=== PATIENT | male | born 1995 | race Caucasian/White ===

== ENCOUNTER 2018-09-22 20:46 | Emergency (ER) | payer SELFPAY ==
[~2018-09-22] VITALS: Wt 95.0 kg
[2018-09-22] MEDS ORDERED: ONDANSETRON 4 MG INJ IV STA (20:59)
[2018-09-22] MEDS ORDERED: FAMOTIDINE 20 MG INJ IV ONE (21:00)
[2018-09-22 22:21] VITALS: BP 120/86; PULSE 75; RESP 18
[2018-09-23] MEDS ORDERED: NALO4SPR NS (06:59)
[2018-09-23] MEDS ORDERED: CEPH-443 PO (07:58)
[2018-09-23] MEDS ORDERED: SULF1TAB31 PO (07:58)
--- NOTE | 2018-09-29 14:48 | ERD ---
ER Documentation Chief Complaint Chief Complaint abdullahi nunez from home for accidental heroin overdose, given 4 of narcan en route HPI This is a 23-year-old male that was brought into the emergency department by EMS after he was found in his home with a suspected accidental heroin overdose. His friend indicated that he had been utilizing heroin. They found the patient unresponsive. EMS arrived and they administered 4 mg of Narcan as he had agonal respirations and pinpoint pupils. Afterwards he returned to his baseline mental status. He denied any suicidal homicidal thoughts or ideations. He denied any chest pain. He denied a headache. He did not feel nauseous and denied any shortness of breath at rest or exertion. He denied any other illicit drug use ROS All systems reviewed and are negative except as per history of present illness. Medications Home Meds Active Scripts Cephalexin* (Keflex*) 500 Mg Capsule, 500 MG PO QID for 7 Days, CAP Prov:TIFFANY SUAREZ MD 09/23/18 Sulfamethoxazole/Trimethoprim* (Bactrim Ds* Tablet) 1 Each Tablet, 1 TAB PO BID, #14 TAB Prov:TIFFANY SUAREZ MD 09/23/18 Naloxone HCl nasal spray (Narcan 4 mg/0.1 mL nasal) 4 Mg [place], 4 MG NS .Q2-3MIN for OPIOID OVERDOSE, #2 SPRAY 0 Refills [place] 0.1 mL into one nostril. Repeat with second device into other nostril after 2-3 minutes if no or minimal response Prov:TIFFANY SUAREZ MD 09/23/18 Allergies Allergies: Coded Allergies: No Known Allergy (Unverified , 09/23/18) PMhx/Soc Medical and Surgical Hx: pt denies Medical Hx, pt denies Surgical Hx Hx Alcohol Use: Yes Hx Substance Use: Yes (HEROIN) Hx Tobacco Use: No Smoking Status: Never smoker Physical Exam Physical Exam Constitutional:Well-developed. Well-nourished. Disheveled. HEENT:Normocephalic. Atraumatic.Pupils were equal round reactive to light. Moist mucous membranes.No tonsillar exudates. Neck: No nuchal rigidity. No lymphadenopathy. No posterior cervical spine tenderness or step-offs. Respiratory: Not using accessory muscles of respiration.Lungs were clear to auscultation bilaterally. No rhonchi. No rales. No wheezing. Cardiovascular: Regular rate regular rhythm.No murmurs. No rubs were appreciated.S1, S2 normal. Distal pulses are palpable 2+ bilaterally. GI: Abdomen was soft. Nontender. Non Distended. No pulsatile abdominal masses or bruits. No rebound. No guarding. Bowel sounds were present and normal. Muscle skeletal: Full range of motion of both the upper and lower extremities bilaterally.Normal muscle tone.No assymetrical calf tenderness or swelling. Skin: No petechia, no purpura. No lesions on the palms or the soles of the feet. No maculopapular rash. NEURO: Patient was alert, awake, orientated x3.No facial droop. Gait observed and normal with no ataxia.Speech had regular rate and rhythm. No focal neurological deficits. Results 24 hrs Laboratory Tests Test 09/22/18 21:17 White Blood Count 9.8 10^3/ul Red Blood Count 4.68 10^6/ul Hemoglobin 14.9 g/dl Hematocrit 44.2 % Mean Corpuscular Volume 94.4 fl Mean Corpuscular Hemoglobin 31.8 pg Mean Corpuscular Hemoglobin Concent 33.7 g/dl Red Cell Distribution Width 12.8 % Platelet Count 262 10^3/UL Mean Platelet Volume 9.1 fl Immature Granulocytes % 1.200 % Neutrophils % 64.8 % Lymphocytes % 25.7 % Monocytes % 6.7 % Eosinophils % 1.0 % Basophils % 0.6 % Nucleated Red Blood Cells % 0.0 /100WBC Immature Granulocytes # 0.120 10^3/ul Neutrophils # 6.4 10^3/ul Lymphocytes # 2.5 10^3/ul Monocytes # 0.7 10^3/ul Eosinophils # 0.1 10^3/ul Basophils # 0.1 10^3/ul Nucleated Red Blood Cells # 0.0 10^3/ul Prothrombin Time 12.6 Sec Prothrombin Time Ratio 1.0 INR International Normalized Ratio 0.93 Activated Partial Thromboplast Time 25.4 Sec Sodium Level 141 mmol/L Potassium Level 4.5 mmol/L Chloride Level 108 mmol/L Carbon Dioxide Level 26 mmol/L Anion Gap 7 Blood Urea Nitrogen 12 mg/dl Creatinine 0.84 mg/dl Est Glomerular Filtrat Rate mL/min > 60 mL/min Glucose Level 134 mg/dl Calcium Level 8.4 mg/dl Total Bilirubin 0.5 mg/dl Direct Bilirubin 0.00 mg/dl Indirect Bilirubin 0.5 mg/dl Aspartate Amino Transf (AST/SGOT) 109 IU/L Alanine Aminotransferase (ALT/SGPT) 182 IU/L Alkaline Phosphatase 69 IU/L Total Protein 7.3 g/dl Albumin 3.9 g/dl Globulin 3.40 g/dl Albumin/Globulin Ratio 1.14 Salicylates Level < 1.0 mg/dl Acetaminophen Level < 10.0 ug/ml Ethyl Alcohol Level < 10.0 mg/dl Current Medications Medications Dose Sig/Jerrica Start Time Status Last (Trade) Ordered Route PRN Stop Time Admin Dose Reason Admin Ondansetron 4 mg ONCE STAT 09/22/18 DC 09/22/18 HCl (Zofran IV 20:59 09/22/18 21:51 Inj) 21:02 Famotidine 20 mg ONCE ONCE 09/22/18 DC 09/22/18 (Pepcid Iv) IV 21:00 09/22/18 21:52 21:02 Procedures/MDM This is a 23-year-old male that presented to the emergency department with an opiate overdose. The patient had been given Narcan by EMS. Patient had a chest radiograph ordered by myself in order to really view for aspiration pneumonia. Chest radiograph showed no infiltrates. The patient had no severe electrolyte abnormalities. He refused to provide a urine drug screen. Serum salicylates ethanol and acetaminophen were undetected. The patient stated he wanted to leave and the patient had no recurrence of opiate overdose and I did feel he can be safely discharged home. The patient was discharged home in fair condition. They were instructed to return to the emergency department at any time if there was any worsening of their condition. The patient stated they would follow up with their PCP in the next 24-48 hours to initiate a suitable medication regimen under the care of their PCP as well as to allow their PCP to monitor any drug reactions. The patient was discharged home with prescriptions after they gave informed consent to the new medication. They were also fully informed by myself on the adverse effects and adverse drug interactions in order to provide adequate safeguards to prevent possible adverse reactions to medications. Departure Diagnosis: Primary Impression: Accidental overdose Encounter type: initial encounter Qualified Codes: T50.901A - Poisoning by unspecified drugs, medicaments and biological substances, accidental (unintentional), initial encounter Condition: Fair Patient Instructions: Overdose, Accidental (Adult) NATALY METCALF MD Sep 29, 2018 14:48
== END 2018-09-22 22:38 | disposition home or self-care (01) ==
LOC: E/R 20:46 → EDBD 20:46 → E/R 22:38
DX: T40.1X1A Poisoning by heroin, accidental (unintentional), initial encounter (principal); R07.9 Chest pain, unspecified
CPT/HCPCS: 71045; 80053; 80307; 85025; 85610; 85730; J2405; 96374; 96375

== ENCOUNTER 2018-09-23 03:02 | Emergency (ER) | payer SELFPAY ==
[~2018-09-23] VITALS: Wt 95.0 kg
--- NOTE | 2018-09-23 03:18 | ERD ---
ER Documentation Chief Complaint Chief Complaint heroin overdose HPI The patient is a 23-year-old male, presenting to the ER because of acute accidental overdose on heroine. He was discharged from the ER about 2 hours ago due to acute accidental overdose on heroin, was treated with Narcan 4 mg IV by EMS and was observed in the ER for couple hours. He went home and over did the heroin again, his girlfriend then called 911. The EMS gave him Narcan 6 mg IV with good response. He is now awake, alert, able to answer question appropriately. He denies suicidal ideation, simply wanted to get high. He denies headache, neck pain, chest pain, dyspnea, abdominal pain, vomiting, dizzy, diarrhea. He had extensive blood tests on the last visit just a few hours ago. Past medical history: Anxiety Past surgical history: None ROS All systems reviewed and are negative except as per history of present illness. Allergies Allergies: Coded Allergies: No Known Allergy (Unverified , 09/23/18) PMhx/Soc Hx Alcohol Use: Yes Hx Substance Use: Yes (HEROIN) Hx Tobacco Use: No Physical Exam Vitals Vital Signs Date Temp Pulse Resp B/P (MAP) Pulse Ox O2 O2 Flow FiO2 Time Delivery Rate 09/23/18 98.1 107 18 123/79 97 03:14 (94) Physical Exam Const: No acute distress. Head: Atraumatic. Eyes: Normal Conjunctiva. Pinpoint pupils, no nystagmus ENT: Normal External Ears, Nose and Mouth. Neck: Full range of motion. No meningismus. Resp: Clear to auscultation bilaterally. Cardio: Regular tachycardic Abd: Soft, non distended, normal bowel sounds, non tender. Skin: No petechiae or rashes. Back: No midline or flank tenderness. Ext: No cyanosis, or edema. Neur: Awake and alert. No focal deficit Psych: Normal Mood and Affect. Results 24 hrs Current Medications Medications Dose Sig/Jerrica Start Time Status Last (Trade) Ordered Route PRN Stop Time Admin Dose Reason Admin Sodium 1,000 ml @ Q1H ONCE 09/23/18 DC 09/23/18 Chloride 1,000 mls/hr IV 03:30 09/23/18 03:36 04:29 Procedures/[place] [id number] Radiology Main Line: [phone] DIAGNOSTIC IMAGING REPORT Patient: ASAF LOTT : 1995 Age: 23 Sex: M MR #: [id number] DOS: 09/23/18 0000 Ordering MD: BEATRIZ ROSS MD Location: E/R Room/Bed: PROCEDURE: Single view chest. CLINICAL INDICATION: Shortness of breath TECHNIQUE: Single view of the chest was obtained COMPARISON: None FINDINGS: There is no airspace consolidation, focal infiltrate or effusion. Cardiac silhouette and mediastinal contours are unremarkable given degree of rotation. The pulmonary vasculature appears normal. Regional bones are unremarkable. IMPRESSION: No evidence of active cardiopulmonary disease. RPTAT: [facility] Physician Garcia Date Time Electronically viewed and signed by Physician Garcia on 09/23/2018 04:33 xB/ CC: BEATRIZ ROSS MD [id number] MEDICAL MAKING DECISION: The patient is a 23-year-old male, presenting with acute accidental overdose on heroin. He is awake, alert. He will be observed in the ER for 4 hours before discharge. He denies suicidal/homicidal ideation, he simply wanted to get high The differential diagnoses considered include but are not limited to aspiration pneumonia, pneumonia, substance abuse Departure Diagnosis: Primary Impression: Accidental overdose Condition: Good Comments I discussed the findings with the patient. I advised the patient to follow-up with the primary physician in about 1-2 days, sooner if needed and return if any concern. Disclaimer: Inadvertent spelling and grammatical errors are likely due to EHR/dictation software use and do not reflect on the overall quality of patient care. Also, please note that the electronic time recorded on this note does not necessarily reflect the actual time of the patient encounter. BEATRIZ ROSS MD Sep 23, 2018 03:18
[2018-09-23] MEDS ORDERED: SOD CHLORIDE 0.9% 1,000 ML IV ONE (03:30)
[2018-09-23] MEDS ORDERED: NALO4SPR NS (06:59)
[2018-09-23] MEDS ORDERED: CEPH-443 PO (07:58)
[2018-09-23] MEDS ORDERED: SULF1TAB31 PO (07:58)
[2018-09-23 08:15] VITALS: BP 112/78; PULSE 78; RESP 18
== END 2018-09-23 08:23 | disposition home or self-care (01) ==
LOC: E/R 03:02
DX: T40.1X1A Poisoning by heroin, accidental (unintentional), initial encounter (principal); R40.2142 Coma scale, eyes open, spontaneous, at arrival to emergency department; R40.2362 Coma scale, best motor response, obeys commands, at arrival to emergency department; R40.2252 Coma scale, best verbal response, oriented, at arrival to emergency department
CPT/HCPCS: 71045; 99284; J7030